=== PATIENT | male | born 1980 | race Caucasian/White ===

== ENCOUNTER → 2025-03-10 11:59 | Outpatient (BNVA) | payer BC, SELFPAY | PROVIDERS: Visit Provider Nurse Practitioner Family | DX: M25.521 Pain in right elbow (principal) | CPT/HCPCS: 73080 ==

== ENCOUNTER 2025-03-17 11:29 | Day surgery (SDC) | payer BC, SELFPAY ==
[2025-03-17 11:52] VITALS: BP 116/71; PULSE 72; RESP 18; TEMP 36.1; O2SAT 100; BMI 28.7
--- NOTE | 2025-03-17 12:36 | P.ANESASSM_ITS ---
Pre-Anesthetic Assessment Height/Weight: Height 1.78 m Weight 90.718 kg Temp Pulse Resp BP Pulse Ox O2 Del Method 97 F L 72 18 116/71 100 Room Air 03/17/25 11:52 03/17/25 11:52 03/17/25 11:52 03/17/25 11:52 03/17/25 11:52 03/17/25 11:52 Operation Date: 03/17/25 13:00 Proposed Procedures p Colonoscopy 56291 G0121 Z12.11(Not Applicable) - Tony Cruz MD Familial anesthetic complications: none Was Beta Viv taken within 24 hours: N/A Was Clonidine taken within 24 hours: N/A Last intake: Intake Last Liquid Date 03/16/25 Last Liquid Time 23:00 Last Solid Date 03/15/25 Last Solid Time 17:00 Social No alcohol and No tobacco Exam alert and oriented x 3 Airway Submandibular: within normal limits Cervical ROM: within normal limits Mallampati: Class II Dentition: full Comments: Comments: large key History/ROS No significant complaints Pulmonary None reported CV/HEM None reported None reported Hepatic None reported GI None reported Metabolic None reported Musc/skel None reported Neuropsych None reported Anesthetic Plan ASA status: 1 Anesthesia: Anesthesia Evaluation and MAC Risk of > 500 ml blood loss (7ml/kg in children): No Medications/Allergies Home Medications ?Medication ?Instructions ?Recorded ?Confirmed ?Last Taken ?Type prednisone 10 mg tablets in a dose See Rx Instructions PO PER PKG DIR 03/10/25 03/12/25 Unknown Rx pack #21 ea Allergies Allergy/AdvReac Type Severity Reaction Status Date / Time No Known Allergies Allergy Unverified 03/17/25 11:49 Current Medications Generic Name Dose Route Start Last Admin Trade Name Freq PRN Reason Stop Dose Admin Sodium Chloride 1,000 mls @ 15 mls/hr 03/17/25 11:43 03/17/25 12:02 Sodium Chloride 0.9% IV 03/18/25 11:42 15 mls/hr .Q24H PRN Administration COLONOSCOPY FLUIDS PFSH Anesthesia Social History Smoking and tobacco/nicotine status: former use of tobacco/nicotine (quit 13 years ago) Alcohol intake: never Substance/Drug Use: never Adopted: No Caregiver/support person: No Lives independently: Yes Household members: family Housing: Manufactured/Mobile home Marital status: Number of children: 3 Highest education level completed: Associate Degree: Occupational, Technical, Vocational Program service: Yes status: Discharged branch: [employer] Current occupational status: employed
--- NOTE | 2025-03-17 12:37 | W.PM.OPSUD ---
Surgery/Procedure H&P Update DATE OF PROCEDURE: March 17, 2025 DATE H&P PERFORMED: 03/09/25 H&P UPDATE INFORMATION: I have reviewed H&P completed within last 30 days, I have examined patient prior to procedure, No changes to prior documentation and Risks and benefits of the procedure reviewed PLANNED PROCEDURE: Operation Date: 03/17/25 13:00 Proposed Procedures p Colonoscopy [id number] G0121 Z12.11(Not Applicable) - Tony Cruz MD
[2025-03-17 12:57] VITALS: BP 104/66; PULSE 81; RESP 14; TEMP 36.3; O2SAT 94
[2025-03-17 13:07] VITALS: BP 117/67; PULSE 75; RESP 16; O2SAT 94
[2025-03-17 13:20] VITALS: BP 116/68; PULSE 71; RESP 18; O2SAT 96
--- NOTE | 2025-03-17 13:40 | ANE.PACU2 ---
Inpatient post-anesthesia follow up: Airway intact: Yes Vital signs: Temperature 97.4 F Pulse Rate 71 Respiratory Rate 18 Blood Pressure 116/68 Pulse Oximetry 96 Oxygen Delivery Me thod Room Air Oxygen Flow Rate Fraction of Inspir ed Oxygen Hydration adequate: Yes Nausea and vomiting: No Pain level: 1 Mental status: Baseline
== END 2025-03-17 13:40 | disposition home or self-care (01) ==
PROVIDERS: Visit Provider Student in an Organized Health Care Education/Training Program
PROC: 0DJD8ZZ Inspection of Lower Intestinal Tract, Via Natural or Artificial Opening Endoscopic (ICD-10-PCS; CPT 45378; principal; 2025-03-17 13:00)
DX: Z12.11 Encounter for screening for malignant neoplasm of colon (principal); D12.5 Benign neoplasm of sigmoid colon; Z87.891 Personal history of nicotine dependence
CPT/HCPCS: 45380; 45385; 88305; J2704; J7030

== ENCOUNTER → 2025-04-21 14:35 | Outpatient (BNVA) | payer BC, SELFPAY | PROVIDERS: Visit Provider Orthopaedic Surgery | DX: M25.521 Pain in right elbow (principal) | CPT/HCPCS: 73080 ==

== ENCOUNTER 2025-04-21 15:31 | Outpatient (CLI) | payer BC, SELFPAY | END 2025-04-21 15:32 | disposition home or self-care (01) | LOC: SPT 15:32 | PROVIDERS: Visit Provider Orthopaedic Surgery | DX: Z46.89 Encounter for fitting and adjustment of other specified devices (principal); M77.11 Lateral epicondylitis, right elbow | CPT/HCPCS: L3908 ==